=== PATIENT | female | born 1940 ===

== ENCOUNTER → 2018-06-15 | Outpatient (CLI) | payer OTHER ==
[~2018-06-15] MED LIST: METFORMIN HCL500 M1
== END | disposition home or self-care (01) ==
LOC: RAD 11:48 → NUCLEAR 06-28 10:00
DX: M54.16 Radiculopathy, lumbar region (principal)

== ENCOUNTER 2022-06-02 16:53 | Emergency (ER) | payer OTHER ==
[~2022-06-02] VITALS: Ht 152.4 cm; Wt 70.3 kg
[2022-06-02] MEDS ORDERED: ALTACE10 MG (17:46)
[2022-06-02] MEDS ORDERED: AMLODIPINE 5 MG. (17:47)
[2022-06-02] MEDS ORDERED: SYNTHROID88 MCG (17:47)
[2022-06-02] MEDS ORDERED: ATORVASTATIN CA10 MG (17:47)
[2022-06-02] MEDS ORDERED: ACIDO FOLICO 1 MG. (17:48)
[2022-06-02] MEDS ORDERED: NEURIN (17:49)
[2022-06-02] MEDS ORDERED: VITAMINA D-3 (17:50)
== END 2022-06-02 19:48 | disposition home or self-care (01) ==
LOC: ER 16:53
DX: T62.8X1A Toxic effect of other specified noxious substances eaten as food, accidental (unintentional), initial encounter (principal); T43.615A Adverse effect of caffeine, initial encounter; X58.XXXA Exposure to other specified factors, initial encounter; I10 Essential (primary) hypertension; E11.9 Type 2 diabetes mellitus without complications; Z79.84 Long term (current) use of oral hypoglycemic drugs; E03.9 Hypothyroidism, unspecified

== ENCOUNTER 2022-08-10 18:12 | Emergency (ER) | payer OTHER ==
[~2022-08-10] VITALS: Ht 152.4 cm; Wt 68.0 kg
[~2022-08-10 18:12] MED LIST changes: +ACIDO FOLICO 1 MG.; +ALTACE10 MG; +AMLODIPINE 5 MG.; +ATORVASTATIN CA10 MG; +NEURIN; +SYNTHROID88 MCG; +VITAMINA D-3
[2022-08-11] MEDS ORDERED: CEFADROXIL500 MG/5 M PO (03:51)
== END 2022-08-11 03:55 | disposition home or self-care (01) ==
LOC: ER 18:12
DX: N39.0 Urinary tract infection, site not specified (principal)

== ENCOUNTER 2022-08-27 10:06 | Outpatient (CLI) | payer OTHER ==
[~2022-08-27 10:06] MED LIST changes: +CEFADROXIL500 MG/5 M PO
== END 2022-08-27 10:11 | disposition home or self-care (01) ==
LOC: LAB 10:06
PROVIDERS: ATTEND Internal Medicine Geriatric Medicine
DX: N39.0 Urinary tract infection, site not specified (principal)

== ENCOUNTER 2022-08-27 14:39 | Inpatient (IN) | payer OTHER ==
[~2022-08-27] VITALS: Ht 152.4 cm; Wt 58.5 kg
[2022-08-30] MEDS ORDERED: LEVOFLOXACIN750 MG PO (15:02)
[2022-08-30] MEDS ORDERED: INTESTINEX680 M1 PO (15:02)
== END 2022-08-30 21:30 | disposition home or self-care (01) | DRG 690 ==
LOC: ER 14:39 → SURH 18:50 → SEC-K 18:50 → SURH 21:13
PROVIDERS: ADMIT Internal Medicine Geriatric Medicine; ATTEND Internal Medicine Geriatric Medicine
PROC: BW28ZZZ Computerized Tomography (CT Scan) of Head (ICD-10-PCS; principal; 2022-08-27)
DX: N39.0 Urinary tract infection, site not specified (principal); E87.1 Hypo-osmolality and hyponatremia; E86.0 Dehydration; E11.9 Type 2 diabetes mellitus without complications; E78.5 Hyperlipidemia, unspecified; I10 Essential (primary) hypertension; R42 Dizziness and giddiness; Z79.84 Long term (current) use of oral hypoglycemic drugs

== ENCOUNTER 2022-11-16 08:00 | Outpatient (CLI) | payer OTHER ==
[~2022-11-16 08:00] MED LIST changes: +INTESTINEX680 M1 PO; +LEVOFLOXACIN750 MG PO
== END 2022-11-16 08:09 | disposition home or self-care (01) ==
LOC: MAMO-SONO 08:00
DX: Z12.31 Encounter for screening mammogram for malignant neoplasm of breast (principal)

== ENCOUNTER 2022-12-31 09:52 | Emergency (ER) | payer OTHER ==
[~2022-12-31] VITALS: Ht 152.4 cm; Wt 68.0 kg
[2022-12-31] MEDS ORDERED: VITAMIN B-12500 MC3 SL (10:08)
[2022-12-31] MEDS ORDERED: AMLODIPINE-OLM1 EAC2 (10:09)
== END 2022-12-31 13:52 | disposition home or self-care (01) ==
LOC: ER 09:52
DX: R53.1 Weakness (principal); E11.9 Type 2 diabetes mellitus without complications; Z79.84 Long term (current) use of oral hypoglycemic drugs; I10 Essential (primary) hypertension